=== PATIENT | male | born 1950 | race Caucasian/White ===

== ENCOUNTER 2021-04-24 19:14 | Emergency (ER) | payer MEDICARE, SELFPAY ==
[2021-04-24] VITALS (9 sets, daily range): BP systolic 142–184; BP diastolic 74–97; PULSE 53–66; RESP 12–20; TEMP 36.6; O2SAT 98–100; BMI 21.8
[2021-04-24 19:55] LABS: Bacteria Urine None Seen; WBC Urine None Seen (0-5/HPF)
[2021-04-24] MEDS: KETOROLAC 30 MG/ML VIAL 15 MG IV (19:56)
[2021-04-24] MEDS: ONDANSETRON 4 MG/2 ML INJ IV (19:56)
[2021-04-24] MEDS: SODIUM CHLORIDE 0.9% 1,000 ML 1000 ML IV (19:57)
[2021-04-24 19:58] LABS: Add Manual Diff / Slide Review NO; Basophils Absolute Auto 0 /uL (0-100); Basophils Percent Auto 0.6 % (0-2); Eosinophils Absolute Auto 0 /uL (0-450); Eosinophils Percent Auto 0.6 % (2-4); Hematocrit 43.8 % (41-53); Hemoglobin 14.7 g/dL (13.5-17.5); Lymphocytes Absolute Auto 2100 /uL (1100-4500); Lymphocytes Percent Auto 37.5 % (25-40); Mean Corpuscular HGB Conc 33.5 % (30-36); Mean Corpuscular Hemoglobin 31.6 PG (26-34); Mean Corpuscular Volume 94.5 fL (80-100); Monocytes Absolute Auto 600 /uL (0-900); Monocytes Percent Auto 10.5 % (3-14); Neutrophils Absolute Auto 2900 /uL (1500-7000); Neutrophils Percent Auto 50.8 % (50-75); Platelet Count 152 X10^3/uL (150-400); Red Blood Cell Count 4.63 X10^6/uL (4.5-5.9); Red Cell Distribution Width 13.2 % (11.6-14.8); White Blood Cell Count 5.7 X10^3/uL (4.5-11.0)
[2021-04-24 20:03] LABS: Alanine Aminotransferase 19 IU/L (<50); Albumin 4.4 g/dL (3.5-5.0); Albumin Globulin Ratio 1.6 (1.0-2.8); Alkaline Phosphatase 51 U/L (38-126); Aspartate Aminotransferase 27 IU/L (17-59); BUN Creatinine Ratio 19.4 (6-22); Blood Urea Nitrogen 19 mg/dL (9-20); Calcium 9.6 mg/dL (8.4-10.2); Carbon Dioxide 26 mmol/L (22-32); Chloride 105 mmol/L (98-107); Estimated Glomerular Filt Rate > 60.0 mL/min (>60); Globulin 2.7 g/dL (1.7-4.1); Glucose 131 mg/dL (80-110); HEMOLYSIS < 15 (0-50); Potassium 3.7 mmol/L (3.4-5.1); Sodium 140 mmol/L (137-145); Total Protein 7.1 g/dL (6.3-8.2)
[2021-04-24 20:06] LABS: Culture Indicated Urine Cult Not Indicated; RBC Urine 1-5/HPF (0-5/HPF)
--- NOTE | 2021-04-24 20:14 | DI.CT.S_ITS ---
PROCEDURE: CT KIDNEY URETER BLADDER (KUB) INDICATIONS: Right flank pain, ? stone TECHNIQUE: Axial sections were acquired from the lung bases to the pubic symphysis. Coronal and sagittal reformats were performed. For radiation dose reduction, the following was used: automated exposure control, adjustment of mA and/or kV according to patient size. COMPARISON:None. FINDINGS: Image quality: Excellent. Lung bases: Unremarkable. Heart: No significant findings. URINARY: Right Kidney: Moderate right-sided hydronephrosis and mild right perinephric fat stranding is seen. Tiny 1-2 millimeter nonobstructing right renal calculi are seen. Right Ureter: [id number] right-sided hydronephrosis is noted. 3 millimeter faint radiodensity is noted in the region of right UVJ. Left Kidney: Tiny 1-2 millimeter nonobstructing stones are seen in left kidney. No hydronephrosis. Left Ureter: No hydroureter. Bladder: Normal wall thickness. No stones. ABDOMEN: Liver: Unremarkable. Gallbladder: Within normal limits. Biliary ducts: Unremarkable. Pancreas: Unremarkable. Spleen: Unremarkable. Adrenal Glands: Unremarkable. Stomach and Bowel: Stomach, small bowel loops, and colon are unremarkable. Mild fecal stasis in the colon is seen. Peritoneum: No abnormal intraperitoneal fluid. No free air. Ventral Wall: No hernia. Abdominal Nodes: No enlarged retroperitoneal or mesenteric lymph nodes. Vessels: Aorta and inferior vena cava are normal in size. PELVIS: Pelvic Organs: Unremarkable. Pelvic Nodes: Unremarkable. Miscellaneous: No inguinal hernias are seen. Bones: No acute compression fracture or spondylolisthesis. No suspicious bony lesion. IMPRESSION: 1. 3 millimeter right UVJ stone with moderate right-sided hydronephrosis and mild to moderate hydroureter. 2. Tiny bilateral nonobstructing renal calculi. No left-sided hydronephrosis or hydroureter. Normal appearing urinary bladder. 3. Mild fecal stasis in the colon. No bowel obstruction or abnormal bowel wall thickening. No free fluid or free air. Dictated by: Thomas Vivar M.D. on 04/24/2021 at 20:57 Approved by: Thomas Vivar M.D. on 04/24/2021 at 21:01
--- NOTE | 2021-04-24 21:39 | ED_ITS ---
HPI - General Adult General Chief complaint: Urogenital-Male Stated complaint: STABBING PAIN IN THE BACK Time Seen by Provider: 04/24/21 19:49 Source: patient Mode of arrival: Family Vehicle Limitations: no limitations History of Present Illness HPI narrative: Otherwise healthy 70-year-old gentleman presents with acute right-sided flank pain that started at 6:30 a.m. this evening. He does have a history of prior kidney stone approximately 15 years ago that was 75 mm in size and was passed spontaneously. He describes mild nausea secondary to the pain no obvious hematuria, no recent fevers, cough, chills, diarrhea, chest pain, palpitations, rashes. He describes the pain as a sharp stabbing pain in the right flank radiating to the right groin that is not influenced by eating, having a bowel movement or walking. Related Data Home Medications Medication Instructions Recorded Confirmed No Known Home Medications 04/24/21 04/24/21 Allergies Allergy/AdvReac Type Severity Reaction Status Date / Time No Known Drug Allergies Allergy Verified 04/24/21 19:21 Review of Systems Review of Systems Narrative: Remainder of complete review of systems is otherwise unremarkable except for that included in the HPI. Patient History Social History Smoking Status: Never smoker Smoking Status: Never smoker alcohol intake frequency: 0-2 drinks per day Substance Use Type: does not use Exam Narrative Exam Narrative: General: Healthy appearing, in no acute distress. Able to give a complete and coherent history. Well-nourished well-developed HEENT: Moist mucous membranes, normal sclera with reactive pupils, Neck: No JVD, supple Respiratory: Lungs are clear to auscultation, no wheezing no rales no rhonchi. Full and symmetrical air movement Cardiac: Regular rate and rhythm no murmurs no bruits Abdomen: Soft, nontender, good bowel tones, no rebound or guarding. Right flank pain Skin: Warm and dry, no rashes Neurologic: Grossly neurologically intact with no obvious asymmetries or ab normalities Extremities: No trauma, well perfused Psych: Cooperative, appropriate insight and affect Initial Vital Signs Initial Vital Signs: Vital Signs Temperature 97.9 F 04/24/21 19:21 Pulse Rate 66 04/24/21 19:21 Respiratory Rate 20 04/24/21 19:21 Blood Pressure 142/97 H 04/24/21 19:21 Pulse Oximetry 99 04/24/21 19:21 Course Orders Ordered: ED Orders 04/24/21 19:26 Complete Blood Count AUTO DIFF Stat Comprehensive Metabolic Panel Stat 04/24/21 19:46 Urine Microscopic Stat 04/24/21 20:14 CT kidney ureter bladder (KUB) Stat Discontinued Medications Hydromorphone HCl (Hydromorphone 0.5 Mg Inj) 0.5 mg IV Q15MIN PRN PRN Reason: Pain, Sodium Chloride (Normal Saline 0.9%) 1,000 mls @ 1,000 mls/hr IV BOLUS ONE Stop: 04/24/21 20:48 Last Infusion: 04/24/21 21:23 Dose: 0 mls/hr Documented by: Admin: 04/24/21 19:57 Dose: 1,000 mls/hr Documented by: KURT Ketorolac Tromethamine (Ketorolac 30 Mg/Ml Vial) 15 mg IV NOW ONE Stop: 04/24/21 19:50 Last Admin: 04/24/21 19:56 Dose: 15 mg Documented by: KURT Ondansetron HCl (Ondansetron 4 Mg/2 Ml Inj) 4 mg IV NOW ONE Stop: 04/24/21 19:50 Last Admin: 04/24/21 19:56 Dose: 4 mg Documented by: KURT Oxycodone/Acetaminophen (Oxycodone/Acetaminophen 5/325 Tablet) 1 tab PO NOW ONE Stop: 04/24/21 22:23 Last Admin: 04/24/21 22:27 Dose: 1 tab Documented by: KURT Oxycodone/Acetaminophen (Oxycodone/Apap 5/325 Prepack) 1 bottle MISC SEEINSTR ONE Stop: 04/24/21 22:23 Last Admin: 04/24/21 22:27 Dose: 1 bottle Documented by: KURT Vital Signs Vital signs: Vital Signs - 8 hr 04/24/21 20:36 04/24/21 21:00 04/24/21 21:16 Pulse Rate 55 L 53 L 59 L Respiratory Rate Blood Pressure 163/74 H Pulse Oximetry 99 98 98 04/24/21 21:30 04/24/21 21:31 07/18/21 22:00 Pulse Rate 56 L 59 L 53 L Respiratory Rate Blood Pressure 166/80 H 160/75 H Pulse Oximetry 99 100 99 04/24/21 22:57 Pulse Rate 57 L Respiratory Rate 12 Blood Pressure 167/74 H Pulse Oximetry 98 Medical Decision Making Lab Data Result diagrams: 04/24/21 19:26 04/24/21 19:26 Labs: Lab Results 04/24/21 04/24/21 04/24/21 Range/Units 19:26 19:26 19:46 WBC 5.7 (4.5-11.0) X10^3/uL RBC 4.63 (4.5-5.9) X10^6/uL Hgb 14.7 (13.5-17.5) g/dL Hct 43.8 (41-53) % MCV 94.5 (80-100) fL MCH 31.6 (26-34) PG MCHC 33.5 (30-36) % RDW 13.2 (11.6-14.8) % Plt Count 152 (150-400) X10^3/uL Neut % (Auto) 50.8 (50-75) % Lymph % (Auto) 37.5 (25-40) % [place] % (Auto) 10.5 (3-14) % Eos % (Auto) 0.6 L (2-4) % Baso % (Auto) 0.6 (0-2) % Neut # (Auto) 2900 (4180-8543) /uL Lymph # (Auto) 2100 (8924-7411) /uL [place] # (Auto) 600 (0-900) /uL Eos # (Auto) 0 (0-450) /uL Baso # (Auto) 0 (0-100) /uL Sodium 140 (137-145) mmol/L Potassium 3.7 (3.4-5.1) mmol/L Chloride 105 (98-107) mmol/L Carbon Dioxide 26 (22-32) mmol/L BUN 19 (9-20) mg/dL Creatinine 0.98 (0.66-1.25) mg/dL Estimated GFR > 60.0 (>60) mL/min BUN/Creatinine Ratio 19.4 (6-22) Glucose 131 H (80-110) mg/dL Calcium 9.6 (8.4-10.2) mg/dL Total Bilirubin 1.0 (0.2-1.3) mg/dL AST 27 (17-59) IU/L ALT 19 (<50) IU/L Alkaline Phosphatase 51 (38-126) U/L Total Protein 7.1 (6.3-8.2) g/dL Albumin 4.4 (3.5-5.0) g/dL Globulin 2.7 (1.7-4.1) g/dL Albumin/Globulin Ratio 1.6 (1.0-2.8) Urine RBC 1-5/hpf (0-5/HPF) Urine WBC None seen (0-5/HPF) Urine Bacteria None seen (None) Ur Culture Indicated? Cult not indicated Urine Dip Bedside Urine Glucose Negative Bedside Urine Bilirubin - Negative Bedside Urine Ketone - Negative Urine Specific [place] 1.020 Bedside Urine Occult Blood +++ Bedside Urine pH 6.0 Bedside Urine Protein - Negative Bedside Urine Urobilinogen - Negative Bedside Urine Nitrite - Negative Bedside Urine Leukocytes - Negative Esterase Point of care testing: Urine Dip Bedside Urine Glucose Negative Bedside Urine Bilirubin - Negative Bedside Urine Ketone - Negative Urine Specific [place] 1.020 Bedside Urine Occult Blood +++ Bedside Urine pH 6.0 Bedside Urine Protein - Negative Bedside Urine Urobilinogen - Negative Bedside Urine Nitrite - Negative Bedside Urine Leukocytes - Negative Esterase Imaging Data CT KUB: Radiologist's Impression: FINDINGS: Image quality: Excellent. Lung bases: Unremarkable. Heart: No significant findings. URINARY: Right Kidney: Moderate right-sided hydronephrosis and mild right perinephric fat stranding is seen. Tiny 1-2 millimeter nonobstructing right renal calculi are seen. Right Ureter: [id number] right-sided hydronephrosis is noted. 3 millimeter faint radiodensity is noted in the region of right UVJ. Left Kidney: Tiny 1-2 millimeter nonobstructing stones are seen in left kidney. No hydronephrosis. Left Ureter: No hydroureter. Bladder: Normal wall thickness. No stones. ABDOMEN: Liver: Unremarkable. Gallbladder: Within normal limits. Biliary ducts: Unremarkable. Pancreas: Unremarkable. Spleen: Unremarkable. Adrenal Glands: Unremarkable. Stomach and Bowel: Stomach, small bowel loops, and colon are unremarkable. Mild fecal stasis in the colon is seen. Peritoneum: No abnormal intraperitoneal fluid. No free air. Ventral Wall: No hernia. Abdominal Nodes: No enlarged retroperitoneal or mesenteric lymph nodes. Vessels: Aorta and inferior vena cava are normal in size. PELVIS: Pelvic Organs: Unremarkable. Pelvic Nodes: Unremarkable. Miscellaneous: No inguinal hernias are seen. Bones: No acute compression fracture or spondylolisthesis. No suspicious bony lesion. IMPRESSION: 1. 3 millimeter right UVJ stone with moderate right-sided hydronephrosis and m ild to moderate hydroureter. 2. Tiny bilateral nonobstructing renal calculi. No left-sided hydronephrosis or hydroureter. Normal appearing urinary bladder. 3. Mild fecal stasis in the colon. No bowel obstruction or abnormal bowel wall thickening. No free fluid or free air. Dictated by: Thomas Vivar M.D. on 04/24/2021 at 20:57 MDM Narrative Medical decision making narrative: 70-year-old gentleman with acute onset severe right flank pain microscopic hematuria is appreciated in CT scan confirms 3 mm ureteral stone on the right side. There is no evidence of intra-abdominal infection, pyelonephritis or urinary tract infection or alternative explanation for his pain. Responded nicely to 1 L of normal saline, Zofran, Toradol and 0.5 mg of Dilaudid. After approximately 2 hours the pain was building again and r esponded nicely to a single oral Percocet at this point. Will be discharged home with instructions for treating the pain, given a strainer to use. With his larger prior stone 15 years ago he passed it without the use of Flomax and declines adding Flomax at this time. He will follow-up with his primary care physician and he is given clear return to emergency department warnings for fevers and increasing pain. He is safe for home discharge Discharge Plan Departure Patient Disposition: Home Clinical Impression: Ureterolithiasis Instructions: DI for Kidney Infection Activity Restrictions/Additional Instructions: Thank you for coming in today You do have a kidney stone on the right side. It is 3 mm and about detention down the ureter on its way to the bladder. Using 400 mg of ibuprofen (2 swff-dry-osvkknp pills) and 1 Tylenol every 6 hours can be very helpful in controlling pain. For severe pain using 400 mg of ibuprofen and 1 Percocet will be helpful Please follow-up with your primary care physician If you develop any fever, increasing pain that can not be controlled with oral medications, are unable to void or develop new symptoms please return to the ER Prescriptions: No Action No Known Home Medications RF: 0
[2021-04-24] MEDS: OXYCODONE/ACETAMINOPHEN 5/325 TABLET 1 TAB PO (22:27)
[2021-04-24] MEDS: OXYCODONE/APAP 5/325 PREPACK 1 BOTTLE MISC (22:27)
== END 2021-04-24 22:58 | disposition home or self-care (01) ==
PROVIDERS: Emergency Provider Emergency Medicine
DX: N20.1 Calculus of ureter (principal); Z87.442 Personal history of urinary calculi; R11.0 Nausea
CPT/HCPCS: 36415; 74176; 80053; 81003; 81015; 85025; 96361; 96374; 96375; 99284; J1885; J2405

== ENCOUNTER 2023-11-25 09:16 | Emergency (ER) | payer MEDICARE, SELFPAY ==
[2023-11-25] VITALS (8 sets, daily range): BP systolic 132–177; BP diastolic 62–82; PULSE 67–86; RESP 12–24; TEMP 36.7; O2SAT 95–99; BMI 23.3
--- NOTE | 2023-11-25 09:30 | ED_ITS ---
HPI - Chest Pain General Chief Complaint: Chest Pain Stated Complaint: chest pain/ b/p higher than usual Time Seen by Provider: 11/25/23 09:27 Source: patient Mode of arrival: Ambulatory Limitations: no limitations History of Present Illness HPI narrative: Patient 73-year-old male without significant past medical history presenting today with left-sided chest discomfort. He reports it has been there for about 2 weeks. It started after he tried to car. Since then it has been in 1 particular spot under his left pectoral muscle. It is reproducible with palpation. He was able to go on his daily 2 mile walk this morning without any sort of problem he was able to walk up heal without any problem. However he was coming up the stairs from the basement about nursing home through he got a little dizzy held onto the wall for about 10 seconds felt better and went. No nausea or vomiting no palpitations no numbness tingling or weakness. He has not required anything for pain in his left chest. His father of an [place] at the age of 59 but thinks it was secondary to world war 2 exposure and obesity. Patient himself has no known coronary artery disease Related Data Allergies Allergy/AdvReac Type Severity Reaction Status Date / Time No Known Drug Allergies Allergy Verified 05/19/21 13:07 Patient History Medical History Hyperlipidemia Kidney stone (~2020) Prostate cancer screening Surgical History Anesthesia History of surgery Family History Father History of heart disease Mother Alzheimer's disease Social History Smoking Status: Never smoker Smoking Status: Never smoker alcohol intake frequency: 0-2 drinks per day Substance Use Type: does not use Exam Initial Vital Signs Initial Vital Signs: Vital Signs Temperature 98.1 F 11/25/23 09:27 Pulse Rate 83 11/25/23 09:27 Respiratory Rate 18 11/25/23 09:27 Blood Pressure 177/82 H 11/25/23 09:27 Pulse Oximetry 98 11/25/23 09:27 Oxygen Delivery Method Room Air 11/25/23 09:27 GENERAL: Alert pleasant well-appearing 73-year-old male and in no acute distress. HEENT: Head atraumatic,EOMI, pupils reactive, face symmetric, moist mucous membranes CARDIOVASCULAR: Regular rate and rhythm without murmurs, rubs or gallops. Pain reproducible under left pectoral muscle 1 pinpoint exact pain he was feeling RESPIRATORY: Breath sounds equal bilaterally, no wheezes rales or rhonchi. ABDOMEN: Soft, nontender. Normoactive bowel sounds all 4 quadrants. No guarding or rebound. EXTREMITIES: Normal range of motion, no clubbing or edema. Neurovascularly intact NEUROLOGICAL: Alert and oriented x4.Normal gait and speech. SKIN: Warm, dry, no laceration, no petechiae, no rashes or lesions. Scores HEART Score Heart Score history: Slightly Suspicious Heart Score EKG: Normal Heart Score Age: > or = 65 years old Heart Score risk factors: 1-2 risk factors Heart Score troponin: < or = to normal limit Heart Score Total: 3 Course Orders Ordered: ED Orders 11/25/23 09:30 XR chest 1V Stat Complete Blood Count AUTO DIFF Stat Comprehensive Metabolic Panel Stat Lipase Stat Magnesium Stat PTT Partial Thromboplastin Rudi Stat Prothrombin Time INR Stat Troponin & CK Cardiac Panel Stat EKG-12 Lead Stat Discontinued Medications Aspirin (Aspirin 81 Mg Chew Tab) 324 mg PO NOW ONE Stop: 11/25/23 09:31 Last Admin: 11/25/23 09:49 Dose: 324 mg Documented By: TERESA Vital Signs Vital signs: Vital Signs - 8 hr 11/25/23 09:27 11/25/23 09:29 11/25/23 09:30 Temperature 98.1 F Pulse Rate 83 84 81 Respiratory Rate 18 21 Blood Pressure 177/82 H Pulse Oximetry 98 99 98 Oxygen Delivery Method Room Air 11/25/23 09:31 11/25/23 09:31 11/25/23 10:00 Temperature Pulse Rate 86 Respiratory Rate 20 Blood Pressure 173/62 H 150/73 H Pulse Oximetry 98 Oxygen Delivery Method Room Air 11/25/23 10:00 11/25/23 10:30 11/25/23 10:30 Temperature Pulse Rate 79 68 Respiratory Rate 12 12 Blood Pressure 140/67 Pulse Oximetry 95 97 Oxygen Delivery Method Room Air 11/25/23 11:00 11/25/23 11:00 11/25/23 11:30 Temperature Pulse Rate 78 67 Respiratory Rate 15 15 Blood Pressure 143/79 H Pulse Oximetry 98 98 Oxygen Delivery Method 11/25/23 11:30 Temperature Pulse Rate Respiratory Rate Blood Pressure 132/72 Pulse Oximetry Oxygen Delivery Method Room Air MDM - Chest Pain Lab Data 11/25/23 09:30 11/25/23 09:30 Labs: Lab Results 11/25/23 Range/Units 09:30 WBC 4.1 L (4.5-11.0) X10^3/uL RBC 4.74 (4.5-5.9) X10^6/uL Hgb 15.3 (13.5-17.5) g/dL Hct 44.0 (41-53) % MCV 92.9 (80-100) fL MCH 32.3 (26-34) PG MCHC 34.8 (30-36) % RDW 12.9 (11.6-14.8) % Plt Count 140 L (150-400) X10^3/uL Neut % (Auto) 61.6 (50-75) % Lymph % (Auto) 27.2 (25-40) % [place] % (Auto) 9.2 (3-14) % Eos % (Auto) 1.3 L (2-4) % Baso % (Auto) 0.7 (0-2) % Neut # (Auto) 2500 (3486-4096) /uL Lymph # (Auto) 1100 (1419-8048) /uL [place] # (Auto) 400 (0-900) /uL Eos # (Auto) 100 (0-450) /uL Baso # (Auto) 0 (0-100) /uL PT 11.4 (9.4-12.5) SECONDS INR 1.0 (0.9-1.3) APTT 33 (25.1-36.5) SECONDS Sodium 140 (137-145) mmol/L Potassium 4.1 (3.4-5.1) mmol/L Chloride 104 (98-107) mmol/L Carbon Dioxide 28 (22-32) mmol/L BUN 17 (9-20) mg/dL Creatinine 0.99 (0.66-1.25) mg/dL Estimated GFR > 60 (>60) mL/min BUN/Creatinine Ratio 17.2 (6-22) Glucose 141 H (80-110) mg/dL Calcium 9.1 (8.4-10.2) mg/dL Magnesium 2.0 (1.6-2.3) mg/dL Total Bilirubin 1.3 (0.2-1.3) mg/dL AST 30 (17-59) IU/L ALT 23 (<50) IU/L Alkaline Phosphatase 57 (38-126) U/L Total Creatine Kinase 126 (55-170) U/L Troponin I < 0.012 (0.01-0.034) ng/mL Total Protein 7.4 (6.3-8.2) g/dL Albumin 4.4 (3.5-5.0) g/dL Globulin 3.0 (1.7-4.1) g/dL Albumin/Globulin Ratio 1.5 (1.0-2.8) Lipase 84 (23-300) U/L Imaging Data Chest x-ray: Radiologist's Impression: PROCEDURE: XR CHEST 1V INDICATIONS: chest pain TECHNIQUE: One view of the chest was acquired. COMPARISON: None. FINDINGS: Surgical changes and devices: None. Lungs and pleura: Lungs are clear. No pleural effusions or pneumothorax. Mediastinum: Mediastinal contours appear normal. Heart size is normal. Bones and chest wall: No suspicious bony lesions. Overlying soft tissues appear unremarkable. IMPRESSION: No acute cardiopulmonary abnormality is seen. Approved by: Josefa Mishra M.D. on 11/25/2023 at 10:31 ECG Data Attestation: I personally reviewed and interpreted this ECG as follows: Interpretation: Sinus rhythm rate 82 ND interval 146 QRS 90 QTC 436 mild artifact noted MDM Narrative Medical decision making narrative: Patient is 73-year-old male who presents today with reproducible chest pain ongoing for last 2 weeks after he tried to push a car. He is here today because he was slightly dizzy when going up stairs it lasted for 10 seconds without any focal deficits and no recurrence of dizziness. Pain is pinpoint under left pectoral muscle and reproducible to palpation. Heart score 3 Blood work has been reviewed without clinical significant abnormalities Imaging chest x-ray reviewed and negative At this time patient has reproducible chest pain low risk heart score negative troponin and ongoing chest pain for 2 weeks. At this time I do think that his pain is musculoskeletal related rather than cardiac. He was able to walk today up [place] without any sort of pain or exertional dyspnea. He did so while going up the stairs today as well the only got a little dizzy. Encouraged him to follow up with his primary care provider and discuss if he needs any further cardiac workup. Also encouraged him if his pain returns or changes then he needs to return to the ED. Discharge Plan Departure Patient Disposition: Home Clinical Impression: Costochondritis, Atypical chest pain Instructions: Costochondritis, DI for Atypical Chest Pain Activity Restrictions/Additional Instructions: *You have been diagnosed with costochondritis and atypical chest *What to do: At this time I do think your pain is definitely muscle related. This should heal over time. However I do encourage you to talk with your primary care provider about on going heart workup including stress test and echocardiogram. If you should have any change in your chest discomfort please return to ER immediately *Continue to take medications as directed *Follow up with your primary care provider in 2-3 days or call [phone] *Return to ER if you should have increasing pain shortness of breath [or] any new, worsening or concerning symptoms Referrals: Stefano Barron MD [Primary Care Provider] - Stand Alone Forms: Patient Portal/API
[2023-11-25 09:49] LABS: Add Manual Diff / Slide Review NO; Basophils Absolute Auto 0 /uL (0-100); Basophils Percent Auto 0.7 % (0-2); Eosinophils Absolute Auto 100 /uL (0-450); Eosinophils Percent Auto 1.3 % (2-4); Hemoglobin 15.3 g/dL (13.5-17.5); Lymphocytes Absolute Auto 1100 /uL (1100-4500); Lymphocytes Percent Auto 27.2 % (25-40); Mean Corpuscular HGB Conc 34.8 % (30-36); Mean Corpuscular Hemoglobin 32.3 PG (26-34); Mean Corpuscular Volume 92.9 fL (80-100); Monocytes Absolute Auto 400 /uL (0-900); Monocytes Percent Auto 9.2 % (3-14); Neutrophils Absolute Auto 2500 /uL (1500-7000); Neutrophils Percent Auto 61.6 % (50-75); Platelet Count 140 X10^3/uL (150-400); Red Blood Cell Count 4.74 X10^6/uL (4.5-5.9); Red Cell Distribution Width 12.9 % (11.6-14.8); White Blood Cell Count 4.1 X10^3/uL (4.5-11.0)
[2023-11-25] MEDS: ASPIRIN 81 MG CHEW TAB 324 MG PO (09:49)
[2023-11-25 10:10] LABS: Prothrombin Time 11.4 SECONDS (9.4-12.5)
[2023-11-25 10:13] LABS: PTT Partial Thromboplastin Tim 33 SECONDS (25.1-36.5)
[2023-11-25 10:14] LABS: Alanine Aminotransferase 23 IU/L (<50); Albumin 4.4 g/dL (3.5-5.0); Albumin Globulin Ratio 1.5 (1.0-2.8); Alkaline Phosphatase 57 U/L (38-126); Aspartate Aminotransferase 30 IU/L (17-59); BUN Creatinine Ratio 17.2 (6-22); Bilirubin Total 1.3 mg/dL (0.2-1.3); Blood Urea Nitrogen 17 mg/dL (9-20); Calcium 9.1 mg/dL (8.4-10.2); Carbon Dioxide 28 mmol/L (22-32); Chloride 104 mmol/L (98-107); Creatine Kinase 126 U/L (55-170); Estimated Glomerular Filt Rate > 60 mL/min (>60); Glucose 141 mg/dL (80-110); HEMOLYSIS 15 (0-50); Lipase 84 U/L (23-300); Potassium 4.1 mmol/L (3.4-5.1); Sodium 140 mmol/L (137-145); Total Protein 7.4 g/dL (6.3-8.2)
[2023-11-25 10:25] LABS: Troponin I < 0.012 ng/mL (0.01-0.034)
== END 2023-11-25 11:50 | disposition home or self-care (01) ==
PROVIDERS: Emergency Provider Emergency Medicine; PCP Family Medicine
DX: M94.0 Chondrocostal junction syndrome [Tietze] (principal); R07.89 Other chest pain
CPT/HCPCS: 36415; 71045; 80053; 82550; 83690; 83735; 84484; 85025; 85610; 85730; 93005; 99284